=== PATIENT | female | born 1985 | race American Indian/Alaskan Native ===

== ENCOUNTER 2017-04-07 19:25 | Emergency (ER) | payer MEDICAID ==
[2017-04-07 21:31] LABS: Basophils % (Auto) 0.5 % (0.0-1.8); Eosinophils # (Auto) 0.1 K/mm3 (0.0-0.4); Eosinophils % (Auto) 1.1 % (0.0-4.3); Hematocrit 35.8 % (30.3-42.9); Hemoglobin 11.3 gm/dl (10.1-14.3); Lymphocytes # (Auto) 2.4 K/mm3 (1.2-5.4); Lymphocytes % (Auto) 48.8 % (13.4-35.0); Mean Corpuscular HGB Conc 32 % (30-34); Mean Corpuscular Volume 80 fl (79-97); Monocytes # (Auto) 0.5 K/mm3 (0.0-0.8); Platelet Count 203 K/mm3 (140-440); Red Blood Count 4.49 M/mm3 (3.65-5.03)
[2017-04-07 21:36] LABS: Mean Corpuscular Hemoglobin 25 pg (28-32)
--- NOTE | 2017-04-07 23:22 | Ultrasound Report ---
FINAL REPORT PROCEDURE: US OB < = 14 WEEKS FETUS TECHNIQUE: Real-time transabdominal and transvaginal sonography of the uterus, placenta, amniotic fluid, adnexa, and fetus was performed with image documentation. Measurements were obtained to determine age/size. M-mode Doppler was used to document heartbeat. CPT 14504 and 05761 HISTORY: vag bleeding COMPARISON: No prior studies are available for comparison. FINDINGS: ADDITIONAL GESTATION: None. CRL: 6 mm, which corresponds to a gestational age of: 6 weeks, 3 days. Yolk Sac: Normal. Embryonic Cardiac Activity: 94 beats per minute Gestational Sac: Normal. Amniotic fluid: Normal. Cervix: Normal. Right Ovary: Normal. Left Ovary: There is a dominant cyst on the left ovary this measures 32 millimeters Estimated delivery date: 11/28/2017 Uterus and adnexa: As above IMPRESSION: 1. Single live intrauterine gestation at approximately 6 weeks, 3 days. 2. EDC by US 11/28/2017 3. Complete anatomic survey at 18-20 weeks suggested.
--- NOTE | 2017-04-07 23:23 | Ultrasound Report ---
FINAL REPORT PROCEDURE: US OB < = 14 WEEKS FETUS TECHNIQUE: Real-time transabdominal and transvaginal sonography of the uterus, placenta, amniotic fluid, adnexa, and fetus was performed with image documentation. Measurements were obtained to determine age/size. M-mode Doppler was used to document heartbeat. CPT 02518 and 39586 HISTORY: vag bleeding COMPARISON: No prior studies are available for comparison. FINDINGS: ADDITIONAL GESTATION: None. CRL: 6 mm, which corresponds to a gestational age of: 6 weeks, 3 days. Yolk Sac: Normal. Embryonic Cardiac Activity: 94 beats per minute Gestational Sac: Normal. Amniotic fluid: Normal. Cervix: Normal. Right Ovary: Normal. Left Ovary: There is a dominant cyst on the left ovary this measures 32 millimeters Estimated delivery date: 11/28/2017 Uterus and adnexa: As above IMPRESSION: 1. Single live intrauterine gestation at approximately 6 weeks, 3 days. 2. EDC by US 11/28/2017 3. Complete anatomic survey at 18-20 weeks suggested.
[2017-04-08 00:03] LABS: Bacteria,Urine 2+ /HPF (Negative); Bilirubin,Urine NEG (Negative); Blood,Urine LG (Negative); Color,Urine Yellow (Yellow); Mucus,Urine FEW /HPF; Nitrite,Urine NEG (Negative)
[2017-04-08 02:41] VITALS: BP 129/60
--- NOTE | 2017-04-08 05:01 | Emergency Department Report ---
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 Bleeding has been less than 1 pad in the past few hours. It is constant it does not radiate anywhere. It has no exacerbating or relieving factors. MD Complaint: vaginal bleeding -: Gradual, hour(s) Location: suprapubic Radiation: non-radiating Severity: mild Quality: cramping Consistency: constant Improves with: none Worsens with: none Are you Now?: Yes Associated Symptoms: vaginal bleeding. denies: vaginal discharge, abdominal pain, fever/chills, headaches, loss of appetite, dysuria, hematuria, rash, seizure, shortness of breath, syncope, weakness - Related Data Sexually active: Yes Home Medications Medication Instructions Recorded Confirmed Last Taken Ferrous Sulfate [Ferrous Sulfate 300 mg PO 01/07/13 03/10/13 03/08/13 16:00 Oral Liq 300 Mg/5 Ml] Pnv95/Ferrous Fumarate/FA 1 each PO QDAY 01/07/13 03/09/13 03/08/13 16:00 [ Vitamins] 1 Previous Rx's Medication Instructions Recorded Last Taken Type Doxylamine Succinate/Vit B6 1 each PO QHS PRN #30 tablet. 04/08/17 Unknown Rx [[place] 10-10 mg Tablet] Vit Calc,Iron,Folic 1 each PO QDAY #30 tablet 04/08/17 Unknown Rx [ Vitamins] Allergies Allergy/AdvReac Type Severity Reaction Status Date / Time No Known Allergies Allergy Verified 01/07/13 19:52 ED Review of Systems ROS: Stated complaint: VAGINAL BLEEDING Other details as noted in HPI ED Past Medical Hx - Past Medical History Previous Medical History?: No Hx Hypertension: No Hx Congestive Heart Failure: No Hx Diabetes: No Hx Deep Vein Thrombosis: No Hx Renal Disease: No Hx Sickle Cell Disease: No Hx Seizures: No Hx Asthma: No Hx COPD: No Hx HIV: No - Surgical History Past Surgical History?: No - Social History Smoking Status: Never Smoker Substance Use Type: None - Medications Home Medications: Home Medications Medication Instructions Recorded Confirmed Last Taken Type Ferrous Sulfate [Ferrous Sulfate 300 mg PO 01/07/13 03/10/13 03/08/13 16:00 History Oral Liq 300 Mg/5 Ml] Pnv95/Ferrous Fumarate/FA 1 each PO QDAY 01/07/13 03/09/13 03/08/13 16:00 History [ Vitamins] 1 Doxylamine Succinate/Vit B6 1 each PO QHS PRN #30 tablet. 04/08/17 Unknown Rx [Diclegis Dr 10-10 mg Tablet] Vit Calc,Iron,Folic 1 each PO QDAY #30 tablet 04/08/17 Unknown Rx [ Vitamins] ED Physical Exam - General Limitations: No Limitations General appearance: alert, in no apparent distress - Head Head exam: Present: atraumatic, normocephalic - Eye Eye exam: Present: normal appearance, EOMI. Absent: nystagmus - ENT ENT exam: Present: normal exam, normal orophraynx, mucous membranes moist, normal external ear exam - Neck Neck exam: Present: normal inspection, full ROM - Respiratory Respiratory exam: Present: normal lung sounds bilaterally. Absent: respiratory distress - Cardiovascular Cardiovascular Exam: Present: regular rate, normal rhythm, normal heart sounds. Absent: systolic murmur, diastolic murmur, rubs, gallop - GI/Abdominal GI/Abdominal exam: Present: soft, normal bowel sounds. Absent: distended, tenderness, guarding, rebound, rigid, pulsatile mass - External exam: Present: normal external exam Speculum exam: Present: normal speculum exam, vaginal bleeding Bi-manual exam: Present: normal bi-manual exam, other (escorted by nurse Kary Mena). Absent: cervical motion tendernes, adnexal tenderness, adnexal mass, uterine enlargement, uterine tenderness - Extremities Exam Extremities exam: Present: normal inspection, full ROM, normal capillary refill. Absent: pedal edema, joint swelling, calf tenderness - Back Exam Back exam: Present: normal inspection, full ROM. Absent: tenderness, CVA tenderness (R), paraspinal tenderness, vertebral tenderness - Neurological Exam Neurological exam: Present: alert, oriented X3, CN II-XII intact, normal gait, other (Extraocular movements intact. Tongue midline. No facial droop. Facial sensation intact to light touch in the V1, V2, V3 distribution bilaterally. 5 and 5 strength in 4 extremities.. Sensation is intact to light touch in 4 extremities.). Absent: motor sensory deficit - Psychiatric Psychiatric exam: Present: normal affect, normal mood - Skin Skin exam: Present: warm, dry, intact, normal color. Absent: rash ED Course Vital Signs 04/07/17 04/08/17 20:25 02:35 Temperature 98.5 F 98.1 F Pulse Rate 71 74 Respiratory 18 16 Rate Blood Pressure 119/71 129/60 O2 Sat by Pulse 100 100 Oximetry ED Medical Decision Making - Lab Data Result diagrams: 04/07/17 21:10 Vital Signs 04/07/17 04/08/17 20:25 02:35 Temperature 98.5 F 98.1 F Pulse Rate 71 74 Respiratory 18 16 Rate Blood Pressure 119/71 129/60 O2 Sat by Pulse 100 100 Oximetry Lab Results 04/07/17 04/07/17 04/07/17 Range/Units 21:10 21:10 21:13 WBC 5.0 (4.5-11.0) K/mm3 RBC 4.49 (3.65-5.03) M/mm3 Hgb 11.3 (10.1-14.3) gm/dl Hct 35.8 (30.3-42.9) % MCV 80 (79-97) fl MCH 25 L (28-32) pg MCHC 32 (30-34) % RDW 15.0 (13.2-15.2) % Plt Count 203 (140-440) K/mm3 Lymph % (Auto) 48.8 H (13.4-35.0) % [place] % (Auto) 10.0 H (0.0-7.3) % Eos % (Auto) 1.1 (0.0-4.3) % Baso % (Auto) 0.5 (0.0-1.8) % Lymph # 2.4 (1.2-5.4) K/mm3 [place] # 0.5 (0.0-0.8) K/mm3 Eos # 0.1 (0.0-0.4) K/mm3 Baso # 0.0 (0.0-0.1) K/mm3 Seg Neutrophils % 39.6 L (40.0-70.0) % Seg Neutrophils # 2.0 (1.8-7.7) K/mm3 HCG, Quant 1229 H (0-4) mIU/mL Urine Color (Yellow) Urine Turbidity (Clear) Urine pH (5.0-7.0) Ur Specific [place] (1.003-1.030) Urine Protein (Negative) mg/dL Urine Glucose (UA) (Negative) mg/dL Urine Ketones (Negative) mg/dL Urine Blood (Negative) Urine Nitrite (Negative) Urine Bilirubin (Negative) Urine Urobilinogen (<2.0) mg/dL Ur Leukocyte Esterase (Negative) Urine WBC (Auto) (0.0-6.0) /HPF Urine RBC (Auto) (0.0-6.0) /HPF U Epithel Cells (Auto) (0-13.0) /HPF Urine Bacteria (Auto) (Negative) /HPF Urine Mucus /HPF Blood Type A POSITIVE Antibody Screen Negative 04/07/17 Range/Units 23:50 WBC (4.5-11.0) K/mm3 RBC (3.65-5.03) M/mm3 Hgb (10.1-14.3) gm/dl Hct (30.3-42.9) % MCV (79-97) fl MCH (28-32) pg MCHC (30-34) % RDW (13.2-15.2) % Plt Count (140-440) K/mm3 Lymph % (Auto) (13.4-35.0) % [place] % (Auto) (0.0-7.3) % Eos % (Auto) (0.0-4.3) % Baso % (Auto) (0.0-1.8) % Lymph # (1.2-5.4) K/mm3 [place] # (0.0-0.8) K/mm3 Eos # (0.0-0.4) K/mm3 Baso # (0.0-0.1) K/mm3 Seg Neutrophils % (40.0-70.0) % Seg Neutrophils # (1.8-7.7) K/mm3 HCG, Quant (0-4) mIU/mL Urine Color Yellow (Yellow) Urine Turbidity Clear (Clear) Urine pH 6.0 (5.0-7.0) Ur Specific [place] 1.028 (1.003-1.030) Urine Protein 30 mg/dl (Negative) mg/dL Urine Glucose (UA) Neg (Negative) mg/dL Urine Ketones Neg (Negative) mg/dL Urine Blood Lg (Negative) Urine Nitrite Neg (Negative) Urine Bilirubin Neg (Negative) Urine Urobilinogen 4.0 (<2.0) mg/dL Ur Leukocyte Esterase Neg (Negative) Urine WBC (Auto) 3.0 (0.0-6.0) /HPF Urine RBC (Auto) 43.0 (0.0-6.0) /HPF U Epithel Cells (Auto) 1.0 (0-13.0) /HPF Urine Bacteria (Auto) 2+ (Negative) /HPF Urine Mucus Few /HPF Blood Type Antibody Screen - Radiology Data Radiology results: report reviewed, image reviewed Obstetrics ultrasound demonstrates intrauterine , 6 weeks and 3 days, no obvious complications. - Medical Decision Making Differential diagnosis, including but not limited to: Threatened miscarriage, Assessment and plan: 31-year-old female, Rh+, quantitative hCG 1200, history, physical, presentation suggestive of threatened miscarriage. Hemodynamically stable, clinically well-appearing, no abdominal tenderness, no gynecologic tenderness, patient is suitable for expectant management, she can follow-up in outpatient chemistry technical officer, return precautions are reviewed. Critical care attestation.: If time is entered above; I have spent that time in minutes in the direct care of this critically ill patient, excluding procedure time. ED Disposition Clinical Impression: Threatened Disposition: DC-01 TO HOME OR SELFCARE Is pt being admited?: No Does the pt Need Aspirin: No Condition: Good Instructions: Threatened Miscarriage (ED) Additional Instructions: Rest, and avoid heavy lifting. Avoid strenuous physical activity. Did not have sex until cleared by a chemistry technical officer. Follow-up with her chemistry technical officer within the next 7-10 days. Return to the ER right away with knee pain, worsening pain, migration of pain, nausea, vomiting, confusion, bleeding within 2 pads soaked for hour, lightheadedness, chest pain, severe abdominal pain, loss of consciousness. Prescriptions: Doxylamine Succinate/Vit B6 [[place] 10-10 mg Tablet] 1 each PO QHS PRN #30 tablet. PRN Reason: Nausea Vit Calc,Iron,Folic [ Vitamins] 1 each PO QDAY #30 tablet Referrals: DIEGO GARCIA MD [Primary Care Provider] - 3-5 Days [facility] [Provider Group] - 3-5 Days Forms: Work/School Release Form(ED)
== END 2017-04-08 05:20 | disposition home or self-care (01) ==
LOC: ED 19:25
DX: O20.0 Threatened abortion (principal); Z3A.01 Less than 8 weeks gestation of pregnancy
CPT/HCPCS: 36415; 76801; 76817; 81001; 84702; 85025; 86850; 86900; 86901

== ENCOUNTER 2018-05-09 19:59 | Outpatient (CLI) | payer MEDICAID ==
[2018-05-09] MEDS ORDERED: LACTATED RINGERS 500 ML IV ONE (20:26)
[2018-05-09 22:08] LABS: Bacteria,Urine 1+ /HPF (Negative); Bilirubin,Urine NEG (Negative); Blood,Urine NEG (Negative); Color,Urine Yellow (Yellow); Mucus,Urine FEW /HPF; Protein,Urine <15 mg/dL mg/dL (Negative)
[2018-05-09 22:26] VITALS: BP 113/65
--- NOTE | 2018-05-09 23:00 | Ultrasound Report ---
FINAL REPORT EXAM: US OB FOLLOW UP HISTORY: Abdominal pain, decreased movement TECHNIQUE: Real-time sonography was performed of the gravid uterus and images are submitted for inte rpretation. PRIORS: None. FINDINGS: There is a single fetus in the uterus in a cephalic presentation. Detailed anatomic survey was not pe rformed. The placenta is anterior and the os is clear. Placenta appears normal. The amniotic fluid index is no rmal at 9.2 cm. The cervix is long and closed measuring 5.2 cm. The heart is beating at a rate of 143 beats per minute. Biometric measurements give an estimated gestational age of 29 weeks 3 days. Estimated weight: 1359 grams or 3 pounds 0 ounces. Biophysical profile: Breathin Movement: 2 Tone: 2 Fluid volume: 2 IMPRESSION: 1. Single, live intrauterine gestation, estimated gestational age 29 weeks 3 days for an estimated da te of confinement of 07/22/2018. 2. Normal biophysical profile, 10/23
--- NOTE | 2018-05-09 23:01 | Ultrasound Report ---
FINAL REPORT EXAM: US OB BPP WO NON-STRESS HISTORY: well being TECHNIQUE: Real-time sonography was performed of the gravid uterus for biophysical profile and image s are submitted for interpretation. PRIORS: None. FINDINGS: Biophysical profile: Breathin Movement: 2 Tone: 2 Fluid volume: 2 IMPRESSION: Normal biophysical profile, 10/23
--- NOTE | 2018-05-10 08:06 | Progress Note ---
Assessment and Plan A: at 28 4/7 weeks gestation. Active movement. Normal BPP and MARYSOL. Not in labor; FFN negative and no cervical dilation. P: Consulted with Dr. Marley re: this patient. Dr. Marley states OK to send patient home. Discussed daily movement counting with patient and technique for performing. Follow up with [facility] this coming week in the office. Return promptly if any decreased movement or any other problems. Pt. voiced understanding of instructions. Subjective - Subjective Date of service: 05/09/18 Principal diagnosis: at 28 4/7 weeks; decreased movement Interval history: Triage Note for 05/09/18: 32 year old female presents at 28 4/7 weeks gestation with complaint of slightly decreased movement for past 2 days. Patient denies contractions, abdominal pain, abdominal trauma, falls, vaginal bleeding, leaking of fluid, or any other problems. NST is AGA and BPP 8/8 with normal MARYSOL. Patient states she feels at least 10 movements within the hour since here in L&D triage. Patient reports: no loss of fluid, no vaginal bleeding, no contractions Objective - Vital Signs Vital Signs: Vital Signs - 12hr 05/09/18 05/09/18 05/09/18 20:17 20:24 22:24 Temperature 98.5 F Pulse Rate 83 83 82 Respiratory 18 Rate Blood Pressure 112/57 113/65 Blood Pressure 112/57 [Left] - Exam Abdomen: Present: normal appearance, soft. Absent: distention, tenderness, guarding, rigidity Uterus: Present: normal, fundal height above umbilicus FHR: other (Appropriate for gestational age; BPP 8/8; normal MARYSOL) Cervical Dilatation: 0 Cervical Effacement Percentage: 0 station: -4 Uterine Contraction Duration: FFN negative - Labs Labs: Laboratory Results - last 24 hr 05/09/18 05/09/18 21:25 21:36 Urine Color Yellow Urine Turbidity Clear Urine pH 6.0 Ur Specific [place] 1.021 Urine Protein <15 mg/dl Urine Glucose (UA) Neg Urine Ketones Neg Urine Blood Neg Urine Nitrite Neg Urine Bilirubin Neg Urine Urobilinogen 4.0 Ur Leukocyte Esterase Sm Urine WBC (Auto) 2.0 Urine RBC (Auto) 3.0 U Epithel Cells (Auto) 2.0 Urine Bacteria (Auto) 1+ Urine Mucus Few Fibronectin Negative
== END 2018-05-09 23:06 | disposition home or self-care (01) ==
LOC: TRG 19:59
PROVIDERS: ATTEND Obstetrics & Gynecology
DX: O47.03 False labor before 37 completed weeks of gestation, third trimester (principal); Z3A.28 28 weeks gestation of pregnancy
CPT/HCPCS: 36415; 59025; 76816; 76819; 81001; 82731

== ENCOUNTER 2018-07-09 11:48 | Inpatient (IN) | payer MEDICAID ==
[2018-07-09] MEDS ORDERED: BRETHINE IVP PRN (14:04)
[2018-07-09] MEDS ORDERED: BRETHINE SUB-Q PRN (14:04)
[2018-07-09] MEDS ORDERED: MINERAL OIL PO PRN (14:04)
[2018-07-09] MEDS ORDERED: XYLOCAINE 2% INFILTRATI ONE (14:04)
[2018-07-09] MEDS ORDERED: STADOL IV PRN (14:04)
--- NOTE | 2018-07-09 14:11 | History and Physical Report ---
History of Present Illness Date of examination: 07/09/18 Date of admission: 07/09/18 11:48 Chief complaint: Direct Admission from [facility] due to low MARYSOL History of present illness: Early entry to care; co-alejandro with [facility] due to hx of IUFD. 1st trimester complicated by nausea, 2nd and 3rd trimesters complicated by yeast infections and Anemia. Past History Past Medical History: no pertinent history Past Surgical History: no surgical history [employer] History: chlamydia, herpes, trichomonas Family/Genetic History: diabetes, hypertension, cancer Social history: single, smoking (hx of tobacco and THC) - Obstetrical History Expected Date of Delivery: 07/28/18 Actual Gestation: 37 Week(s) 2 Day(s) : 5 Para: 3 Hx # Term Pregnancies: 2 Number of Pregnancies: 1 Spontaneous Abortions: 1 Number of Living Children: 2 #2 Infant Gender: Female year: 0[birth year] Birthweight: 255.146 g Method of Delivery: Vaginal Complications: other (IUFD) #1 Infant Gender: Female year: 0[birth year] Birthweight: 3.062 kg Method of Delivery: Vaginal Gestational age at delivery: 39 Complications: none #3 Gender: Male year: ,[birth year] Birthweight: 3.572 kg Method of Delivery: Vaginal Gestational age at delivery: 38 Medications and Allergies Allergies Allergy/AdvReac Type Severity Reaction Status Date / Time No Known Allergies Allergy Verified 01/07/13 19:52 Home Medications Medication Instructions Recorded Confirmed Last Taken Type Ferrous Sulfate [Iron] 325 mg PO BID 05/09/18 05/09/18 05/08/18 History Review of Systems All systems: negative - Vital Signs Vital signs: Vital Signs Pulse Pulse Ox 82 99 07/09/18 12:33 07/09/18 12:33 Temp Pulse Resp BP Pulse Ox 98.2 F 92 H 16 117/67 100 07/09/18 13:54 07/09/18 14:03 07/09/18 13:54 07/09/18 13:54 07/09/18 14:03 - Physical Exam Breasts: Positive: normal Cardiovascular: Regular rate Lungs: Positive: Clear to auscultation Abdomen: Positive: normal appearance, normal bowel sounds Genitourinary (Female): Positive: normal external genitalia, other (left labial cyst) Vagina: Positive: normal moisture Uterus: Positive: enlarged - Obstetrical FHR: category 1 Uterine Contraction Monitor Mode: External Cervical Dilatation: 1.5 (VTX, Intact) Cervical Effacement Percentage: 40 station: -3 Uterine Contraction Pattern: Regular Uterine Tone Measurement Phase: Resting Uterine Contraction Intensity: Moderate Results All other labs normal. Assessment and Plan A: IUP @ 37 2/7 weeks Category I Tracing Low MARYSOL GBS Negative P: Admit to L&D per Routine Orders Cook's Cervical Ripening Balloon/ Low-Dose Pitocin
[2018-07-09 14:12] LABS: Hematocrit 29.2 % (30.3-42.9); Hemoglobin 9.4 gm/dl (10.1-14.3); Mean Corpuscular HGB Conc 32 % (30-34); Mean Corpuscular Volume 76 fl (79-97); Platelet Count 202 K/mm3 (140-440); Red Blood Count 3.86 M/mm3 (3.65-5.03); Red Cell Distribution Width 15.9 % (13.2-15.2)
[2018-07-09] MEDS ORDERED: PITOCin/NS 20 UNIT/1000ML DRIP 20 UNITS/1,000 ML BAG IV SCH (15:00)
[2018-07-09] MEDS: LACTATED RINGERS 1,000 ML IV SCH ×2 (15:00→20:51)
[2018-07-09] MEDS: PITOCin/NS 30 UNIT/500ML 30 UNITS/500 ML BAG IV SCH ×2 (15:07→17:53)
--- NOTE | 2018-07-09 19:12 | Progress Note ---
Assessment and Plan A: IUP @ 37 2/7 weeks Category I Tracing Low MARYSOL GBS Negative P: Continue Pitocin Augmentation Multiple Maternal Position Changes IV Pain Control Subjective - Subjective Date of service: 07/09/18 Interval history: Early entry to care; co-alejandro with [facility] due to hx of IUFD. 1st trimester complicated by nausea, 2nd and 3rd trimesters complicated by yeast infections and Anemia. Patient reports: movement normal, other (Resting well under IV Pain Control) Objective - Vital Signs Vital Signs: Vital Signs - 12hr 07/09/18 07/09/18 07/09/18 12:33 12:38 12:43 Temperature Pulse Rate 82 83 99 H Respiratory Rate Blood Pressure Blood Pressure [Left] O2 Sat by Pulse 99 100 98 Oximetry 07/09/18 07/09/18 07/09/18 12:48 12:53 12:58 Temperature Pulse Rate 97 H 91 H 116 H Respiratory Rate Blood Pressure Blood Pressure [Left] O2 Sat by Pulse 100 98 98 Oximetry 07/09/18 07/09/18 07/09/18 13:00 13:03 13:08 Temperature Pulse Rate 117 H 107 H 109 H Respiratory Rate Blood Pressure 117/67 Blood Pressure [Left] O2 Sat by Pulse 98 99 Oximetry 07/09/18 07/09/18 07/09/18 13:13 13:18 13:23 Temperature Pulse Rate 115 H 88 100 H Respiratory Rate Blood Pressure Blood Pressure [Left] O2 Sat by Pulse 99 98 99 Oximetry 07/09/18 07/09/18 07/09/18 13:28 13:33 13:38 Temperature Pulse Rate 110 H 76 84 Respiratory Rate Blood Pressure Blood Pressure [Left] O2 Sat by Pulse 98 98 98 Oximetry 07/09/18 07/09/18 07/09/18 13:43 13:48 13:53 Temperature Pulse Rate 86 90 83 Respiratory Rate Blood Pressure Blood Pressure [Left] O2 Sat by Pulse 99 99 99 Oximetry 07/09/18 07/09/18 07/09/18 13:54 13:58 14:03 Temperature 98.2 F Pulse Rate 87 74 92 H Respiratory 16 Rate Blood Pressure Blood Pressure 117/67 [Left] O2 Sat by Pulse 98 100 Oximetry 07/09/18 07/09/18 07/09/18 14:08 14:13 14:18 Temperature Pulse Rate 77 89 86 Respiratory Rate Blood Pressure Blood Pressure [Left] O2 Sat by Pulse 100 100 100 Oximetry 07/09/18 07/09/18 07/09/18 14:23 14:28 14:33 Temperature Pulse Rate 86 89 77 Respiratory Rate Blood Pressure Blood Pressure [Left] O2 Sat by Pulse 99 99 100 Oximetry 07/09/18 07/09/18 07/09/18 14:38 14:43 14:48 Temperature Pulse Rate 79 70 83 Respiratory Rate Blood Pressure Blood Pressure [Left] O2 Sat by Pulse 100 100 99 Oximetry 07/09/18 07/09/18 07/09/18 14:53 14:58 15:03 Temperature Pulse Rate 78 73 84 Respiratory Rate Blood Pressure Blood Pressure [Left] O2 Sat by Pulse 100 100 100 Oximetry 07/09/18 07/09/18 07/09/18 15:08 15:13 15:18 Temperature Pulse Rate 83 88 81 Respiratory Rate Blood Pressure Blood Pressure [Left] O2 Sat by Pulse 100 100 99 Oximetry 07/09/18 07/09/18 07/09/18 15:23 15:28 15:33 Temperature Pulse Rate 94 H 91 H 82 Respiratory Rate Blood Pressure Blood Pressure [Left] O2 Sat by Pulse 100 100 100 Oximetry 07/09/18 07/09/18 07/09/18 15:38 15:43 15:48 Temperature Pulse Rate 94 H 88 89 Respiratory Rate Blood Pressure Blood Pressure [Left] O2 Sat by Pulse 99 99 100 Oximetry 07/09/18 07/09/18 07/09/18 15:55 16:00 16:05 Temperature Pulse Rate 86 85 100 H Respiratory Rate Blood Pressure Blood Pressure [Left] O2 Sat by Pulse 100 100 99 Oximetry 07/09/18 07/09/18 07/09/18 16:10 16:15 16:16 Temperature Pulse Rate 95 H 92 H Respiratory Rate Blood Pressure Blood Pressure [Left] O2 Sat by Pulse 100 100 65 L Oximetry 07/09/18 07/09/18 07/09/18 16:20 16:25 16:30 Temperature Pulse Rate 71 113 H 100 H Respiratory Rate Blood Pressure Blood Pressure [Left] O2 Sat by Pulse 81 L 100 99 Oximetry 07/09/18 07/09/18 07/09/18 16:37 16:41 16:42 Temperature Pulse Rate 91 H 99 H 100 H Respiratory Rate Blood Pressure Blood Pressure [Left] O2 Sat by Pulse 98 85 99 Oximetry 07/09/18 07/09/18 07/09/18 17:06 17:11 17:16 Temperature Pulse Rate 89 94 H 93 H Respiratory Rate Blood Pressure Blood Pressure [Left] O2 Sat by Pulse 99 99 99 Oximetry 07/09/18 07/09/18 07/09/18 17:21 17:26 17:31 Temperature Pulse Rate 100 H 96 H 102 H Respiratory Rate Blood Pressure Blood Pressure [Left] O2 Sat by Pulse 99 99 99 Oximetry 07/09/18 07/09/18 07/09/18 17:36 17:41 17:46 Temperature Pulse Rate 93 H 86 92 H Respiratory Rate Blood Pressure Blood Pressure [Left] O2 Sat by Pulse 99 99 100 Oximetry 07/09/18 07/09/18 07/09/18 17:51 17:56 18:01 Temperature Pulse Rate 91 H 96 H 89 Respiratory Rate Blood Pressure Blood Pressure [Left] O2 Sat by Pulse 98 94 97 Oximetry 07/09/18 07/09/18 07/09/18 18:04 18:06 18:11 Temperature Pulse Rate 75 82 89 Respiratory Rate Blood Pressure Blood Pressure [Left] O2 Sat by Pulse 94 95 97 Oximetry 07/09/18 07/09/18 07/09/18 18:16 18:21 18:26 Temperature Pulse Rate 87 93 H 91 H Respiratory Rate Blood Pressure Blood Pressure [Left] O2 Sat by Pulse 96 96 96 Oximetry 07/09/18 07/09/18 07/09/18 18:31 18:36 18:41 Temperature Pulse Rate 91 H 90 89 Respiratory Rate Blood Pressure Blood Pressure [Left] O2 Sat by Pulse 97 96 96 Oximetry 07/09/18 07/09/18 07/09/18 18:46 18:51 18:56 Temperature Pulse Rate 85 89 89 Respiratory Rate Blood Pressure Blood Pressure [Left] O2 Sat by Pulse 97 98 97 Oximetry 07/09/18 07/09/18 19:01 19:06 Temperature Pulse Rate 90 87 Respiratory Rate Blood Pressure Blood Pressure [Left] O2 Sat by Pulse 98 97 Oximetry - Exam Breasts: normal Cardiovascular: Regular rate Lungs: Clear to auscultation, Normal air movement Abdomen: Present: normal appearance, soft, normal bowel sounds Uterus: Present: normal, firm, fundal height above umbilicus FHR: category 1 Uterine Contraction Monitor Mode: External Cervical Dilatation: 6 (VTX, Intact) Cervical Effacement Percentage: 70 station: -3 Uterine Contraction Frequency (min): 2 Uterine Contraction Pattern: Regular Uterine Tone Measurement Phase: Resting Uterine Contraction Intensity: Moderate Extremities: normal - Labs Labs: Abnormal Labs 07/09/18 Unknown Hgb 9.4 L Hct 29.2 L MCV 76 L MCH 24 L RDW 15.9 H Laboratory Results - last 24 hr 07/09/18 07/09/18 Unknown Unknown WBC 5.3 RBC 3.86 Hgb 9.4 L Hct 29.2 L MCV 76 L MCH 24 L MCHC 32 RDW 15.9 H Plt Count 202 Blood Type A POSITIVE Antibody Screen Negative
[2018-07-09] MEDS ORDERED: SUBLIMAZE IV ONE (22:55)
--- NOTE | 2018-07-10 00:28 | Procedure Note ---
OB Delivery Note - Delivery Date of Delivery: 07/09/18 (2350) Surgeon: PRERNA THORNTON Estimated blood loss: 100cc - Vaginal Delivery presentation: vertex Delivery position: OA Delivery augmentation: rupture of membranes (AROM of a moderate amount of clear fluid at 2332), pitocin Delivery monitor: external FHT, external uterine Route of delivery: Delivery placenta: spontaneous Delivery cord: true knot, 3 umbilical vessels Episiotomy: none Delivery laceration: none Anesthesia: none Delivery comments: of a live 5'8 female over a intact perineum under IV Pain control with Apgars of 8 and 9 at 2350 on 07/09/2018. Tight true knot observed in cord. Infant directly to maternal abd/chest, skin to skin contact. Spontaneous delivery of placenta complete and intact with [place] side presenting at 2357. Fundus is firm and midline located 4 below the U. Lochia is scant. Delayed cord clamping and cutting; Cord cut by the father of the baby. Placenta discarded. - Infant A at 1 minute: 8 at 5 minutes: 9 Infant Gender: Female (5'8)
[2018-07-10] MEDS ORDERED: DULCOLAX PR PRN (00:33)
[2018-07-10] MEDS ORDERED: BENADRYL PO PRN (00:33)
[2018-07-10] MEDS ORDERED: TUCKS PAD TP PRN (00:33)
[2018-07-10] MEDS ORDERED: SODIUM CHLORIDE FLUSH SYRINGE 10 ML IV NR (01:00)
[2018-07-10] MEDS ORDERED: DERMOPLAST TP PRN (01:56)
[2018-07-10] MEDS: IBUPROFEN PO SCH ×2 (02:06→20:02)
[2018-07-10] MEDS: NORCO 5/325 PO PRN (02:07)
[2018-07-10] MEDS ORDERED: PRENATAL VITAMIN PO SCH (10:00)
--- NOTE | 2018-07-10 10:25 | Progress Note ---
Assessment and Plan A: PPD#1 s/p Asymptomatic Anemia Stable P: Routine PP orders Discharge home in 24-48 hours Subjective - Subjective Date of service: 07/10/18 Principal diagnosis: PPD#1 s/p Patient reports: appetite normal, voiding normally, pain well controlled, flatus, ambulating normally, no bowel movement [place]: doing well, bottle feeding Objective - Vital Signs Latest vital signs: Vital Signs Temp Pulse Resp BP BP Pulse Ox 07/10/18 09:05 98.5 F 77 18 107/56 07/10/18 02:11 97.6 F 81 20 115/64 100 07/10/18 01:18 73 99 07/10/18 01:14 75 94 07/10/18 01:13 78 98 07/10/18 01:08 74 99 07/10/18 01:03 76 100 07/10/18 01:00 77 91 07/10/18 00:58 78 82 L 07/10/18 00:54 76 L 07/10/18 00:53 86 92 07/10/18 00:48 77 100 07/10/18 00:43 83 100 07/10/18 00:38 85 100 07/10/18 00:33 98.2 F 84 18 123/71 100 07/10/18 00:28 70 L 07/10/18 00:25 83 123/71 92 07/10/18 00:23 94 H 100 07/10/18 00:18 74 L 07/10/18 00:13 97 H 100 07/10/18 00:08 86 99 07/09/18 23:07 18 07/09/18 22:24 94 H 100 07/09/18 22:19 94 H 98 07/09/18 22:13 95 H 99 07/09/18 22:08 95 H 98 07/09/18 22:03 87 99 07/09/18 21:58 97 H 99 07/09/18 21:54 80 125/73 07/09/18 21:53 90 98 07/09/18 21:48 85 100 07/09/18 21:43 88 100 07/09/18 21:38 89 100 07/09/18 21:33 90 100 07/09/18 21:28 95 H 100 07/09/18 21:24 86 117/65 07/09/18 21:23 92 H 100 07/09/18 21:18 85 100 07/09/18 21:13 87 100 07/09/18 21:08 77 100 07/09/18 21:02 83 100 07/09/18 20:57 85 100 07/09/18 20:54 75 113/61 07/09/18 20:52 77 100 07/09/18 20:47 81 100 07/09/18 20:42 79 100 07/09/18 20:37 77 99 07/09/18 20:32 86 99 07/09/18 20:27 77 100 07/09/18 20:23 78 123/65 07/09/18 20:22 77 100 07/09/18 20:17 88 100 07/09/18 20:12 89 97 07/09/18 20:07 84 98 07/09/18 20:02 95 H 98 07/09/18 19:57 101 H 99 07/09/18 19:54 101 H 130/71 07/09/18 19:52 103 H 99 07/09/18 19:47 95 H 98 07/09/18 19:42 99 H 97 07/09/18 19:40 97.9 F 90 18 122/58 96 07/09/18 19:39 88 122/58 07/09/18 19:37 92 H 98 07/09/18 19:32 88 96 07/09/18 19:27 90 98 07/09/18 19:22 89 99 07/09/18 19:16 103 H 97 07/09/18 19:11 103 H 98 07/09/18 19:06 87 97 07/09/18 19:01 90 98 07/09/18 18:56 89 97 07/09/18 18:51 89 98 07/09/18 18:46 85 97 07/09/18 18:41 89 96 07/09/18 18:36 90 96 07/09/18 18:31 91 H 97 07/09/18 18:26 91 H 96 07/09/18 18:21 93 H 18 96 07/09/18 18:16 87 96 07/09/18 18:11 89 97 07/09/18 18:06 82 95 07/09/18 18:04 75 94 07/09/18 18:01 89 97 07/09/18 17:56 96 H 94 07/09/18 17:51 91 H 98 07/09/18 17:46 92 H 100 07/09/18 17:41 86 99 07/09/18 17:36 93 H 99 07/09/18 17:31 102 H 99 07/09/18 17:26 96 H 99 07/09/18 17:21 100 H 99 07/09/18 17:16 93 H 99 07/09/18 17:11 94 H 99 07/09/18 17:06 89 99 07/09/18 16:42 100 H 99 07/09/18 16:41 99 H 85 07/09/18 16:37 91 H 98 07/09/18 16:30 100 H 99 07/09/18 16:25 113 H 100 07/09/18 16:20 71 81 L 07/09/18 16:16 65 L 07/09/18 16:15 92 H 100 07/09/18 16:10 95 H 100 07/09/18 16:05 100 H 99 07/09/18 16:00 85 100 07/09/18 15:55 86 100 07/09/18 15:48 89 100 07/09/18 15:43 88 99 07/09/18 15:38 94 H 99 07/09/18 15:33 82 100 07/09/18 15:28 91 H 100 07/09/18 15:23 94 H 100 07/09/18 15:18 81 99 07/09/18 15:13 88 100 07/09/18 15:08 83 100 07/09/18 15:03 84 100 07/09/18 14:58 73 100 07/09/18 14:53 78 100 07/09/18 14:48 83 99 07/09/18 14:43 70 100 07/09/18 14:38 79 100 07/09/18 14:33 77 100 07/09/18 14:28 89 99 07/09/18 14:23 86 99 07/09/18 14:18 86 100 07/09/18 14:13 89 100 07/09/18 14:08 77 100 07/09/18 14:03 92 H 100 07/09/18 13:58 74 98 07/09/18 13:54 98.2 F 87 16 117/67 07/09/18 13:53 83 99 07/09/18 13:48 90 99 07/09/18 13:43 86 99 07/09/18 13:38 84 98 07/09/18 13:33 76 98 07/09/18 13:28 110 H 98 07/09/18 13:23 100 H 99 07/09/18 13:18 88 98 07/09/18 13:13 115 H 99 07/09/18 13:08 109 H 99 07/09/18 13:03 107 H 98 07/09/18 13:00 117 H 117/67 07/09/18 12:58 116 H 98 07/09/18 12:53 91 H 98 07/09/18 12:48 97 H 100 07/09/18 12:43 99 H 98 07/09/18 12:38 83 100 07/09/18 12:33 82 99 Intake and Output 07/09/18 07/10/18 07/10/18 23:59 07:59 15:59 Intake Total 753.716 120 Output Total 1400 Balance 753.716 -1400 120 Intake: IV 753.716 Lactated Ringers 1,000 ml 731.25 @ 125 mls/hr IV DIRECT RAHEEL Rx#:[id number] PITOCin/NS 30 UNIT/500ML 22.466 30 units In 500 ml @ 2 mls/hr IV TITR RAHEEL Rx#: [id number] Oral 120 Output: Urine 1400 Void 1400 Other: Total, Intake Amount 120 Total, Output Amount 900 # Voids Void 1 Estimated Blood Loss 100 - Exam Breasts: Present: normal Cardiovascular: Present: Regular rate, Normal S1, Normal S2, No murmurs Lungs: Present: Clear to auscultation, Normal air movement Abdomen: Present: normal appearance, soft, normal bowel sounds. Absent: distention Vulva: both: normal Uterus: Present: normal, firm, fundal height below umbilicus (-1) Extremities: Present: normal Deep Tendon Reflex Grade: Normal +2 - Labs Labs: Abnormal lab results 07/09/18 Range/Units Unknown Hgb 9.4 L (10.1-14.3) gm/dl Hct 29.2 L (30.3-42.9) % MCV 76 L (79-97) fl MCH 24 L (28-32) pg RDW 15.9 H (13.2-15.2) %
--- NOTE | 2018-07-10 10:27 | Discharge Summary ---
Providers - Providers Date of Admission: 07/09/18 11:48 Date of discharge: 07/11/18 Attending physician: YONAS ALBA MD Primary care physician: YONAS ALBA MD Hospitalization Reason for admission: induction of labor, IUP at term Delivery: Procedure details: See delivery note Episiotomy: none Laceration: none Other procedures: none complications: none Discharge diagnosis: IUP at term delivered baby: female Condition at discharge: Good Disposition: DC-01 TO HOME OR SELFCARE Plan - Provider Discharge Summary Activity: routine, no sex for 6 weeks, no heavy lifting 4 weeks, no strenuous exercise Diet: routine Instructions: routine Additional instructions: [] Smoking cessation referral if applicable(refer to patient education folder for contact #) [] Refer to [facility] Booklet Call your doctor immediately for: * Fever > 100.5 * Heavy vaginal bleeding ( >1 pad per hour) * Severe persistent headache * Shortness of breath * Reddened, hot, painful area to leg or breast * Drainage or odor from incision. * Keep incision clean and dry at all times and follow doctor's instructions regarding bathing/showering Asymptomatic Anemia: Continue Ferrous sulfate 325mg PO BID - Follow up plan Follow up: YONAS ALBA MD [Primary Care Provider] - 6 Weeks
[2018-07-10] MEDS ORDERED: AFLURIA QUAD 2018-2019 SYRINGE IM ONE (12:00)
[2018-07-10 12:51] LABS: Hematocrit 28.3 % (30.3-42.9); Hemoglobin 9.2 gm/dl (10.1-14.3)
[2018-07-11] MEDS: NORCO 5/325 PO PRN (04:14)
[2018-07-11] MEDS ORDERED: BOOSTRIX IM ONE (06:00)
[2018-07-11] MEDS: IBUPROFEN PO SCH (09:11)
[2018-07-11 14:52] VITALS: BP 111/60
== END 2018-07-11 17:00 | disposition home or self-care (01) | DRG 774 ==
LOC: LD 11:48 → OB 07-10 01:36
PROVIDERS: ADMIT Obstetrics & Gynecology; ATTEND Obstetrics & Gynecology
PROC: 10E0XZZ Delivery of Products of Conception, External Approach (ICD-10-PCS; principal; 2018-07-09)
PROC: 10907ZC Drainage of Amniotic Fluid, Therapeutic from Products of Conception, Via Natural or Artificial Opening (ICD-10-PCS; 2018-07-09)
DX: O98.82 Other maternal infectious and parasitic diseases complicating childbirth (principal); O99.02 Anemia complicating childbirth; B37.9 Candidiasis, unspecified; D64.9 Anemia, unspecified; Z83.3 Family history of diabetes mellitus; Z3A.37 37 weeks gestation of pregnancy; Z37.0 Single live birth; Z82.49 Family history of ischemic heart disease and other diseases of the circulatory system; Z87.891 Personal history of nicotine dependence
CPT/HCPCS: 36415; 85014; 85018; 85027; 86592; 86850; 86900; 86901; 90715; G0378; J0595; J2590; J3010; J7120

== ENCOUNTER 2018-07-16 16:30 | Inpatient (IN) | payer MEDICAID ==
--- NOTE | 2018-07-16 16:58 | Emergency Department Report ---
Blank Doc - Documentation Documentation: This is a 32-year-old female that presents with HTN. Patient was sent by OBGYN [facility] to the ED. Patient stated is 1 week . This initial assessment/diagnostic orders/clinical plan/treatment(s) is/are subject to change based on patient's health status, clinical progression and re- assessment by fellow clinical providers in the ED. Further treatment and workup at subsequent clinical providers discretion. Patient/guardians urged not to elope from the ED as their condition may be serious if not clinically assessed and managed. Initial orders include: 1- Patient sent to MAIN ED for further evaluation and treatment 2- labs 3- UA
--- NOTE | 2018-07-16 17:41 | History and Physical Report ---
History of Present Illness Date of examination: 07/16/18 Date of admission: 07/16/18 Chief complaint: S/P a week ago with elevated BP, headache, visual disturbances. History of present illness: Patient is a 32 year old , who is S/P on 07/09/18 who presented to the ER complaining of having headache, visual disturbances. In the office earlier today, her BP was 165/99. She had an unventful with normal BP. 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 History: chlamydia, herpes, trichomonas Family/Genetic History: none Social history: smoking - Obstetrical History : 5 Medications and Allergies Allergies Allergy/AdvReac Type Severity Reaction Status Date / Time No Known Allergies Allergy Verified 01/07/13 19:52 Home Medications Medication Instructions Recorded Confirmed Last Taken Type Ferrous Sulfate [Iron] 325 mg PO BID 05/09/18 07/10/18 06/16/18 History - Vital Signs Vital signs: Vital Signs Temp Pulse Resp BP Pulse Ox 98.9 F 71 18 147/86 99 07/16/18 17:02 07/16/18 17:02 07/16/18 17:02 07/16/18 17:02 07/16/18 17:02 Temp Pulse Resp BP Pulse Ox 98.9 F 71 18 147/86 99 07/16/18 17:02 07/16/18 17:02 07/16/18 17:02 07/16/18 17:02 07/16/18 17:02 - Physical Exam Cardiovascular: Normal S1, Normal S2 Lungs: Positive: Clear to auscultation Vulva: both: normal Adnexa: both: normal Results All other labs normal. Assessment and Plan - Patient Problems (1) (normal spontaneous vaginal delivery) Current Visit: Yes Status: Acute (2) Pre-eclampsia affecting puerperium Current Visit: Yes Status: Acute Plan to address problem: Admit to the labor floor. Toxemia labs. Magnesium sulfate. Monitor Mg levels, DTRs, urine output. Monitor BP. Labetolol for BP control.
[2018-07-16] MEDS ORDERED: MAGNESIUM SULFATE 40GM/1000ML 40 GM/1,000 ML BAG IV SCH (18:00)
[2018-07-16] MEDS ORDERED: MAGNESIUM SULFATE 4GM/100ML 4 GM/100 ML BAG IV ONE (18:30)
[2018-07-16] MEDS ORDERED: NORMODYNE PO ONE (18:51)
[2018-07-16] MEDS ORDERED: LACTATED RINGERS 1,000 ML ONE (19:23)
[2018-07-16 20:22] LABS: Basophils % (Auto) 0.7 % (0.0-1.8); Eosinophils # (Auto) 0.1 K/mm3 (0.0-0.4); Eosinophils % (Auto) 2.1 % (0.0-4.3); Hematocrit 31.3 % (30.3-42.9); Hemoglobin 10.1 gm/dl (10.1-14.3); Lymphocytes # (Auto) 2.2 K/mm3 (1.2-5.4); Mean Corpuscular HGB Conc 32 % (30-34); Mean Corpuscular Volume 76 fl (79-97); Monocytes # (Auto) 0.4 K/mm3 (0.0-0.8); Platelet Count 281 K/mm3 (140-440); Red Blood Count 4.13 M/mm3 (3.65-5.03); Red Cell Distribution Width 16.9 % (13.2-15.2)
[2018-07-16 20:35] LABS: INR 1.01 (0.87-1.13); Partial Thromboplastin Time 26.9 Sec. (24.2-36.6)
[2018-07-16 20:37] LABS: Alanine Aminotransferase 31 units/L (7-56); Albumin 3.2 g/dL (3.9-5); BUN/Creatinine Ratio 15; Blood Urea Nitrogen 6 mg/dL (7-17); Hemolysis Index 39
[2018-07-16 20:41] LABS: Bilirubin,Direct < 0.2 mg/dL (0-0.2)
[2018-07-16 20:50] LABS: Bilirubin,Urine NEG (Negative); Blood,Urine SM (Negative); Color,Urine Yellow (Yellow); Protein,Urine <15 mg/dL mg/dL (Negative)
[2018-07-16] MEDS ORDERED: LACTATED RINGERS 1,000 ML IV SCH (22:00)
[2018-07-17] MEDS ORDERED: TYLENOL PO PRN ×2 (09:30→20:38)
--- NOTE | 2018-07-17 09:35 | Progress Note ---
Assessment and Plan - Patient Problems (1) (normal spontaneous vaginal delivery) Current Visit: Yes Status: Acute (2) Pre-eclampsia affecting puerperium Current Visit: Yes Status: Acute Plan to address problem: . Magnesium sulfate. Monitor Mg levels, DTRs, urine output. Monitor BP. Labetolol for BP control. Subjective - Subjective Date of service: 07/17/18 Principal diagnosis: S/P with pre-eclampsia. Interval history: Patient is a 32 year old , who is S/P on 07/09/18 who presented to the ER complaining of having headache, visual disturbances. In the office earlier today, her BP was 165/99. She was admitted and started on magnesium sulfate for seizure prophylaxis. Labetolol for BP control. She still has headache but denies any visual changes. Her BP has become stable. Objective - Vital Signs Latest vital signs: Vital Signs Temp Pulse Resp BP BP Pulse Ox 07/17/18 09:26 69 99 07/17/18 09:21 70 100 07/17/18 09:18 79 94 07/17/18 09:16 75 100 07/17/18 09:11 74 100 07/17/18 09:08 74 120/68 07/17/18 09:06 71 100 07/17/18 09:01 87 100 07/17/18 08:56 72 100 07/17/18 08:51 80 98 07/17/18 08:46 78 100 07/17/18 08:45 55 L 87 07/17/18 08:41 75 97 07/17/18 08:38 76 109/62 07/17/18 08:36 77 97 07/17/18 08:31 75 97 07/17/18 08:26 79 98 07/17/18 08:21 79 97 07/17/18 08:16 78 98 07/17/18 08:11 83 98 07/17/18 08:08 88 111/76 07/17/18 08:06 93 H 98 07/17/18 08:01 82 99 07/17/18 07:56 76 97 07/17/18 07:51 76 97 07/17/18 07:46 75 97 07/17/18 07:41 74 98 07/17/18 07:38 70 108/65 05/02/19 07:36 74 98 07/17/18 07:31 73 98 05 07:26 73 98 07/17/18 07:21 78 97 07/17/18 07:16 75 98 07/17/18 07:11 83 98 07/17/18 07:08 74 109/61 07/17/18 07:06 77 98 07/17/18 07:01 69 98 07/17/18 06:56 69 98 07/17/18 06:51 75 99 07/17/18 06:46 69 98 07/17/18 06:41 73 97 07/17/18 06:38 69 100/56 07/17/18 06:36 71 97 07/17/18 06:31 70 97 07/17/18 06:26 68 97 07/17/18 06:21 75 98 07/17/18 06:16 63 97 07/17/18 06:11 66 98 07/17/18 06:08 66 111/64 07/17/18 06:06 67 98 07/17/18 06:03 18 07/17/18 06:01 66 97 07/17/18 05:56 66 97 07/17/18 05:51 88 98 07/17/18 05:46 90 97 07/17/18 05:41 78 97 07/17/18 05:38 77 115/63 07/17/18 05:36 84 97 07/17/18 05:31 82 98 07/17/18 05:26 94 H 98 07/17/18 05:21 77 98 07/17/18 05:16 80 97 07/17/18 05:11 76 97 07/17/18 05:08 73 111/68 07/17/18 05:06 79 98 07/17/18 05:04 97.8 F 18 07/17/18 05:01 74 98 07/17/18 04:56 93 H 97 07/17/18 04:51 80 96 07/17/18 04:46 81 96 07/17/18 04:41 80 96 07/17/18 04:38 77 111/60 07/17/18 04:36 79 96 05 04:31 78 96 02 04:26 82 96 05 04:21 78 96 07/17/18 04:16 79 96 07/17/18 04:11 76 96 07/17/18 04:08 77 111/61 /05/06 04:06 75 97 07/17/18 04:01 74 95 07/17/18 03:56 79 96 07/17/18 03:51 80 96 07/17/18 03:49 16 07/17/18 03:46 72 97 02 03:41 74 97 07/17/18 03:38 77 115/61 07/17/18 03:36 78 97 07/17/18 03:31 74 97 07/17/18 03:26 76 97 07/17/18 03:21 78 96 07/17/18 03:16 79 96 07/17/18 03:11 77 96 07/17/18 03:08 73 115/59 07/17/18 03:06 76 96 07/17/18 03:01 77 96 07/17/18 02:56 79 96 07/17/18 02:51 79 96 07/17/18 02:46 79 96 07/17/18 02:41 77 96 07/17/18 02:38 72 115/59 07/17/18 02:36 78 96 07/17/18 02:35 16 07/17/18 02:31 75 95 07/17/18 02:26 77 96 07/17/18 02:21 73 96 07/17/18 02:16 81 97 07/17/18 02:11 78 97 07/17/18 02:08 78 109/61 07/17/18 02:06 76 97 02 02:01 76 97 07/17/18 01:56 79 97 07/17/18 01:51 71 96 07/17/18 01:46 73 96 07/17/18 01:41 72 96 02 01:38 69 103/58 07/17/18 01:36 72 96 07/17/18 01:31 70 96 07/17/18 01:30 18 07/17/18 01:26 69 96 07/17/18 01:21 67 97 07/17/18 01:16 68 97 02 01:11 70 97 07/17/18 01:08 67 107/59 07/17/18 01:06 83 97 07/17/18 01:01 83 97 07/17/18 00:56 81 97 07/17/18 00:51 78 97 07/17/18 00:46 78 97 07/17/18 00:41 78 97 07/17/18 00:38 75 104/57 07/17/18 00:36 69 98 07/17/18 00:31 85 98 07/17/18 00:26 76 97 07/17/18 00:21 86 98 07/17/18 00:16 91 H 97 07/17/18 00:11 77 96 07/17/18 00:08 77 111/60 07/17/18 00:06 79 96 07/17/18 00:01 79 96 07/16/18 23:56 78 96 07/16/18 23:51 72 97 07/16/18 23:46 74 96 07/16/18 23:41 81 96 07/16/18 23:38 78 114/61 07/16/18 23:36 76 96 07/16/18 23:31 78 96 07/16/18 23:26 77 96 07/16/18 23:21 73 96 07/16/18 23:16 76 96 07/16/18 23:11 77 96 07/16/18 23:08 75 108/56 07/16/18 23:06 75 96 07/16/18 23:02 94 H 94 07/16/18 23:01 74 96 07/16/18 22:56 76 96 07/16/18 22:51 78 96 07/16/18 22:46 75 96 07/16/18 22:41 72 96 07/16/18 22:38 71 114/59 07/16/18 22:36 71 97 07/16/18 22:31 72 96 07/16/18 22:26 80 97 07/16/18 22:21 72 96 07/16/18 22:16 73 96 07/16/18 22:11 70 96 07/16/18 22:09 68 110/56 07/16/18 22:06 68 96 07/16/18 22:01 67 96 07/16/18 21:56 67 96 05 21:51 65 96 05 21:46 70 97 07/16/18 21:41 66 96 05 21:36 67 97 05 21:35 67 117/67 05/01/19 21:31 67 96 07/16/18 21:30 66 114/62 07/16/18 21:26 68 97 07/16/18 21:25 66 110/60 07/16/18 21:21 69 96 07/16/18 21:20 67 120/61 07/16/18 21:18 97.9 F 68 16 129/68 97 07/16/18 21:16 67 98 07/16/18 21:15 67 129/68 07/16/18 21:11 60 98 07/16/18 21:10 65 134/67 07/16/18 21:07 97.9 F 71 18 125/64 07/16/18 21:06 77 99 07/16/18 21:05 76 125/64 07/16/18 21:01 65 100 07/16/18 21:00 62 138/73 07/16/18 19:43 174/93 07/16/18 19:41 65 174/93 07/16/18 19:36 63 98 07/16/18 19:31 63 98 07/16/18 19:26 61 98 07/16/18 19:21 67 98 07/16/18 19:16 66 97 07/16/18 19:13 145/89 07/16/18 19:12 68 145/89 07/16/18 19:11 67 94 07/16/18 19:09 65 91 07/16/18 19:06 63 98 07/16/18 19:01 65 99 07/16/18 18:56 70 98 07/16/18 18:51 65 98 07/16/18 18:46 64 98 07/16/18 18:43 61 142/75 07/16/18 18:42 59 L 82 L 07/16/18 18:41 62 176/92 81 L 07/16/18 17:02 98.9 F 71 18 147/86 99 Intake and Output 07/16/18 07/17/18 07/17/18 23:59 07:59 15:59 Output Total 4400 Balance -4400 Output: Urine 4400 Indwelling Catheter 4400 Other: Total, Output Amount 2100 Weight 80.739 kg - Exam Cardiovascular: Present: Normal S1, Normal S2 Lungs: Present: Clear to auscultation Vulva: both: normal Deep Tendon Reflex Grade: Normal +2 - Labs Labs: Abnormal lab results 07/16/18 07/16/18 07/17/18 Range/Units 19:50 19:50 00:51 MCV 76 L (79-97) fl MCH 24 L (28-32) pg RDW 16.9 H (13.2-15.2) % Lymph % (Auto) 45.0 H (13.4-35.0) % [place] % (Auto) 9.0 H (0.0-7.3) % BUN 6 L (7-17) mg/dL Creatinine 0.4 L (0.7-1.2) mg/dL Calcium 8.0 L (8.4-10.2) mg/dL Magnesium 4.30 H (1.7-2.3) mg/dL Total Protein 6.0 L (6.3-8.2) g/dL Albumin 3.2 L (3.9-5) g/dL
[2018-07-17] MEDS ORDERED: IBUPROFEN PO PRN (16:15)
[2018-07-17] MEDS ORDERED: PHENERGAN PO PRN (20:38)
[2018-07-17] MEDS ORDERED: DULCOLAX PR PRN (20:38)
[2018-07-17] MEDS ORDERED: MILK OF MAGNESIA PO PRN (20:38)
[2018-07-17] MEDS ORDERED: LANSINOH TP PRN (20:38)
[2018-07-17] MEDS ORDERED: NORCO 5/325 PO PRN (20:38)
[2018-07-17] MEDS ORDERED: BENADRYL PO PRN (20:38)
[2018-07-17] MEDS ORDERED: TUCKS PAD TP PRN (20:38)
[2018-07-17] MEDS ORDERED: PHENERGAN PR PRN (20:38)
[2018-07-17] MEDS ORDERED: ZOFRAN IV PRN (20:38)
[2018-07-17] MEDS ORDERED: SODIUM CHLORIDE FLUSH SYRINGE 10 ML IV NR (21:00)
[2018-07-17] MEDS ORDERED: NORMODYNE PO SCH (22:00)
[2018-07-17] MEDS: FEOSOL PO SCH (22:31)
[2018-07-17] MEDS: IBUPROFEN PO SCH (22:32)
[2018-07-18] MEDS: IBUPROFEN PO SCH ×3 (06:23→15:02)
[2018-07-18] MEDS ORDERED: LANSINOH TP PRN (06:24)
[2018-07-18 09:26] LABS: Hematocrit 32.7 % (30.3-42.9); Hemoglobin 10.5 gm/dl (10.1-14.3)
[2018-07-18] MEDS ORDERED: NORMODYNE PO SCH (10:00)
[2018-07-18] MEDS: FEOSOL PO SCH (10:06)
--- NOTE | 2018-07-18 17:11 | Discharge Summary ---
Providers - Providers Date of Admission: 07/17/18 12:51 Attending physician: YONAS ALBA MD Primary care physician: KHUSHI FERNANDEZ Hospitalization Reason for admission: other ( preeclampsia) Pertinent studies: PIH labs -wnl Hospital course: 32yo female readmitted for management of preeclampsia. She received magnesium sulfate and Labetolol. On HD#3 she was discharged home in stable condition on home meds. Disposition: DC-01 TO HOME OR SELFCARE Plan - Discharge Medications Prescriptions: Labetalol [Normodyne TAB] 100 mg PO BID 30 Days #60 tablet - Provider Discharge Summary Activity: no sex for 6 weeks, no strenuous exercise Additional instructions: [] Smoking cessation referral if applicable(refer to patient education folder for contact #) [] Refer to [facility] Booklet Call your doctor immediately for: * Fever > 100.5 * Heavy vaginal bleeding ( >1 pad per hour) * Severe persistent headache * Shortness of breath * Reddened, hot, painful area to leg or breast * Drainage or odor from incision. * Keep incision clean and dry at all times and follow doctor's instructions regarding bathing/showering - Follow up plan Follow up: KHUSHI FERNANDEZ MD [Primary Care Provider] - 7 Days
[2018-07-18 17:51] VITALS: BP 152/69
== END 2018-07-18 18:25 | disposition home or self-care (01) | DRG 776 ==
LOC: ED 16:30 → LD 17:50 → OBSVTOIN 07-17 12:51 → OB 07-17 22:19
PROVIDERS: ADMIT Obstetrics & Gynecology; ATTEND Obstetrics & Gynecology
DX: O14.95 Unspecified pre-eclampsia, complicating the puerperium (principal); O99.335 Smoking (tobacco) complicating the puerperium; F17.210 Nicotine dependence, cigarettes, uncomplicated
CPT/HCPCS: 36415; 80048; 80076; 81001; 83735; 85014; 85018; 85025; 85610; 85730; G0378; J3475; J7120; Q0169